=== PATIENT | female | born 1965 | race Caucasian/White ===

== ENCOUNTER → 2016-08-19 | Outpatient (CLI) | payer BC | LOC: LAB 10:22 | DX: Z00.00 Encounter for general adult medical examination without abnormal findings (principal); K90.0 Celiac disease; E50.9 Vitamin A deficiency, unspecified; D50.8 Other iron deficiency anemias; E03.8 Other specified hypothyroidism; E56.1 Deficiency of vitamin K ==

== ENCOUNTER → 2017-05-04 | Outpatient (CLI) | payer BC ==
[2017-05-04 07:55] LABS: EOS % 1.1 % (1.0-5.0); HEMATOCRIT 43.2 % (37.0-47.0); LYMPH# 1.3 (1.50-4.00); MEAN CELL VOLUME 88 fl (78-100); MEAN CORPUSCULAR HEMOGLOBIN 29 pg (27-31); MEAN CORPUSCULAR HGB CONC 32 g/dL (33-37); MEAN PLATELET VOLUME 9.1 fl (7.4-10.4); MONO # 0.4 (0.20-0.80); NEU # 2.1 (1.40-6.50); PLATELET COUNT 394 K/mm3 (130-400); RED BLOOD COUNT 4.91 M/mm3 (4.10-5.30); RED CELL DISTRIBUTION WIDTH 13.4 % (11.5-14.5); WHITE BLOOD COUNT 3.8 K/mm3 (4.8-10.8)
[2017-05-04 08:10] LABS: BUN/CREATININE RATIO 26.8 (6.0-26.0); TOTAL BILIRUBIN 0.9 mg/dL (0.2-1.3); TOTAL PROTEIN 7.3 g/dL (6.3-8.2)
[2017-05-04 09:10] LABS: URINE APPEARANCE CLEAR; URINE BILIRUBIN NEGATIVE (NEGATIVE); URINE BLOOD 50 ery/uL (NEGATIVE); URINE COLOR YELLOW; URINE GLUCOSE NEGATIVE (NEGATIVE); URINE KETONE NEGATIVE (NEGATIVE); URINE LEUKOCYTE ESTERASE NEGATIVE (NEGATIVE); URINE MUCUS PRESENT (NOT PRESENT); URINE NITRATE NEGATIVE (NEGATIVE); URINE PROTEIN(semi-quant) NEGATIVE (NEGATIVE); URINE UROBILINOGEN NORMAL (NORMAL)
[2017-05-04 09:18] LABS: ERYTHROCYTE SEDIMENTATION RATE 3 mm/hr (0-30)
[2017-05-04 22:56] LABS: C-REACTIVE PROTEIN XXX
[2017-05-05 00:46] LABS: T3 TOTAL 74 ng/dL (87-178)
== END ==
LOC: LAB 07:39
PROVIDERS: Internal Medicine
DX: K90.0 Celiac disease (principal); Z00.00 Encounter for general adult medical examination without abnormal findings; E50.9 Vitamin A deficiency, unspecified; E56.1 Deficiency of vitamin K; Z12.11 Encounter for screening for malignant neoplasm of colon; E03.8 Other specified hypothyroidism; D50.8 Other iron deficiency anemias

== ENCOUNTER → 2017-05-22 | Outpatient (CLI) | payer BC | LOC: LAB 14:58 | DX: Z00.00 Encounter for general adult medical examination without abnormal findings (principal); K90.0 Celiac disease; E56.1 Deficiency of vitamin K; Z12.11 Encounter for screening for malignant neoplasm of colon ==

== ENCOUNTER → 2017-05-27 | Outpatient (CLI) | payer BC ==
[2017-05-27 12:23] LABS: PH-URINE 5.5 (5.0 - 8.0); URINE APPEARANCE CLEAR; URINE BILIRUBIN NEGATIVE (NEGATIVE); URINE BLOOD NEGATIVE (NEGATIVE); URINE COLOR YELLOW; URINE GLUCOSE NEGATIVE (NEGATIVE); URINE KETONE NEGATIVE (NEGATIVE); URINE LEUKOCYTE ESTERASE NEGATIVE (NEGATIVE); URINE NITRATE NEGATIVE (NEGATIVE); URINE PROTEIN(semi-quant) NEGATIVE (NEGATIVE); URINE UROBILINOGEN NORMAL (NORMAL)
[2017-05-28 01:00] LABS: T3 TOTAL 697 ng/dL (87-178)
== END ==
LOC: LAB 11:30
PROVIDERS: Internal Medicine
DX: R31.9 Hematuria, unspecified (principal)

== ENCOUNTER → 2017-06-25 | Outpatient (CLI) | payer BC ==
[2017-06-26 01:18] LABS: T3 TOTAL 74 ng/dL (87-178)
== END ==
LOC: LAB 13:47
PROVIDERS: Internal Medicine
DX: E03.8 Other specified hypothyroidism (principal)

== ENCOUNTER → 2018-04-30 | Outpatient (CLI) | payer BC ==
[2018-04-30 13:49] LABS: URINE WBC 0 /hpf (0-3)
[2018-04-30 14:18] LABS: EOS # 0.1 (0.04-0.40); EOS % 1.5 % (1.0-5.0); HEMATOCRIT 41.1 % (37.0-47.0); HEMOGLOBIN 13.2 g/dL (12.5-16.0); LYMPH# 1.4 (1.50-4.00); MEAN CELL VOLUME 88 fl (78-100); MEAN CORPUSCULAR HEMOGLOBIN 28 pg (27-31); MEAN CORPUSCULAR HGB CONC 32 g/dL (33-37); MEAN PLATELET VOLUME 10.7 fl (7.4-10.4); MONO # 0.4 (0.20-0.80); NEU # 2.6 (1.40-6.50); PLATELET COUNT 357 K/mm3 (130-400); RED BLOOD COUNT 4.65 M/mm3 (4.10-5.30); RED CELL DISTRIBUTION WIDTH 12.6 % (11.5-14.5); WHITE BLOOD COUNT 4.5 K/mm3 (4.8-10.8)
[2018-04-30 14:53] LABS: CALCIUM 9.3 mg/dL (8.4-10.2); TOTAL BILIRUBIN 0.8 mg/dL (0.2-1.3); TOTAL PROTEIN 6.8 g/dL (6.3-8.2)
[2018-04-30 15:44] LABS: ERYTHROCYTE SEDIMENTATION RATE 5 mm/hr (0-30)
[2018-04-30 17:12] LABS: URINE APPEARANCE CLEAR; URINE BILIRUBIN NEGATIVE (NEGATIVE); URINE BLOOD NEGATIVE (NEGATIVE); URINE COLOR YELLOW; URINE GLUCOSE NEGATIVE (NEGATIVE); URINE KETONE NEGATIVE (NEGATIVE); URINE LEUKOCYTE ESTERASE NEGATIVE (NEGATIVE); URINE NITRATE NEGATIVE (NEGATIVE); URINE PROTEIN(semi-quant) NEGATIVE (NEGATIVE); URINE UROBILINOGEN NORMAL (NORMAL)
[2018-05-01 01:25] LABS: T3 TOTAL 68 ng/dL (87-178)
[2018-05-01 10:33] LABS: C-REACTIVE PROTEIN XXX
== END ==
LOC: LAB 09:34
PROVIDERS: Internal Medicine
DX: Z12.11 Encounter for screening for malignant neoplasm of colon (principal); Z00.00 Encounter for general adult medical examination without abnormal findings; K90.0 Celiac disease; E03.9 Hypothyroidism, unspecified; D50.9 Iron deficiency anemia, unspecified

== ENCOUNTER → 2018-09-24 | Outpatient (CLI) | payer BC | LOC: LAB 13:22 | DX: Z01.84 Encounter for antibody response examination (principal) ==

== ENCOUNTER → 2019-04-25 | Outpatient (CLI) | payer BC ==
[2019-04-25 18:38] LABS: EOS # 0.1 (0.04-0.40); EOS % 1.2 % (1.0-5.0); HEMOGLOBIN 14.2 g/dL (12.5-16.0); MEAN CELL VOLUME 88 fl (78-100); MEAN CORPUSCULAR HEMOGLOBIN 29 pg (27-31); MEAN CORPUSCULAR HGB CONC 33 g/dL (33-37); MEAN PLATELET VOLUME 9.2 fl (7.4-10.4); MONO # 0.6 (0.20-0.80); NEU # 3.7 (1.40-6.50); PLATELET COUNT 385 K/mm3 (130-400); RED BLOOD COUNT 4.88 M/mm3 (4.10-5.30); RED CELL DISTRIBUTION WIDTH 12.9 % (11.5-14.5); WHITE BLOOD COUNT 6.5 K/mm3 (4.8-10.8)
[2019-04-25 18:44] LABS: PH-URINE 6.5 (5.0 - 8.0); URINE APPEARANCE CLEAR; URINE BILIRUBIN NEGATIVE (NEGATIVE); URINE BLOOD NEGATIVE (NEGATIVE); URINE COLOR YELLOW; URINE GLUCOSE NEGATIVE (NEGATIVE); URINE KETONE NEGATIVE (NEGATIVE); URINE LEUKOCYTE ESTERASE NEGATIVE (NEGATIVE); URINE MUCUS PRESENT (NOT PRESENT); URINE NITRATE NEGATIVE (NEGATIVE); URINE PROTEIN(semi-quant) TRACE mg/dL (NEGATIVE); URINE UROBILINOGEN NORMAL (NORMAL)
[2019-04-25 18:48] LABS: ALBUMIN 4.2 g/dL (3.5-5.0); POTASSIUM 4.2 mmol/L (3.5-5.1); SODIUM 138 mmol/L (136-145)
[2019-04-25 18:49] LABS: CALCIUM 9.4 mg/dL (8.3-10.5)
[2019-04-25 18:50] LABS: TOTAL PROTEIN 7.3 g/dL (6.4-8.3)
[2019-04-25 18:51] LABS: CARBON DIOXIDE 24 mmol/L (22-29); GLUCOSE 97 mg/dL (65-105)
[2019-04-25 18:52] LABS: TOTAL BILIRUBIN 0.4 mg/dL (0.2-1.2)
[2019-04-25 18:56] LABS: AST-SGOT 14 U/L (5-34)
[2019-04-25 18:57] LABS: ALT/SGPT 19 U/L (0-55)
[2019-04-25 19:41] LABS: ERYTHROCYTE SEDIMENTATION RATE 8 mm/hr (0-30)
[2019-04-26 19:33] LABS: T3 TOTAL 87 ng/dL (87-178)
== END ==
LOC: LAB 17:45
PROVIDERS: Internal Medicine
DX: Z00.00 Encounter for general adult medical examination without abnormal findings (principal); Z12.11 Encounter for screening for malignant neoplasm of colon; E03.8 Other specified hypothyroidism; K90.0 Celiac disease; E56.1 Deficiency of vitamin K; D50.8 Other iron deficiency anemias

== ENCOUNTER → 2020-05-16 | Outpatient (CLI) | payer BC ==
[2020-05-16 17:23] LABS: EOS # 0.1 (0.04-0.40); EOS % 1.5 % (1.0-5.0); HEMATOCRIT 41.4 % (37.0-47.0); HEMOGLOBIN 13.6 g/dL (12.5-16.0); LYMPH# 1.9 (1.50-4.00); MEAN CELL VOLUME 88 fl (78-100); MEAN CORPUSCULAR HEMOGLOBIN 29 pg (27-31); MEAN CORPUSCULAR HGB CONC 33 g/dL (33-37); MEAN PLATELET VOLUME 9.1 fl (7.4-10.4); MONO # 0.6 (0.20-0.80); NEU # 2.7 (1.40-6.50); PLATELET COUNT 404 K/mm3 (130-400); WHITE BLOOD COUNT 5.3 K/mm3 (4.8-10.8)
[2020-05-16 17:28] LABS: POTASSIUM 4.1 mmol/L (3.5-5.1)
[2020-05-16 17:29] LABS: ALBUMIN 4.1 g/dL (3.5-5.0)
[2020-05-16 17:30] LABS: CALCIUM 8.9 mg/dL (8.3-10.5)
[2020-05-16 17:31] LABS: TOTAL PROTEIN 7.2 g/dL (6.4-8.3)
[2020-05-16 17:33] LABS: TOTAL BILIRUBIN 0.8 mg/dL (0.2-1.2)
[2020-05-16 17:38] LABS: MAGNESIUM 2.12 mg/dL (1.60-2.60)
[2020-05-16 18:15] LABS: ERYTHROCYTE SEDIMENTATION RATE 4 mm/hr (0-30)
[2020-05-19 12:30] LABS: VITAMIN A 33.2 mcg/dL (())
== END ==
LOC: LAB 17:04
PROVIDERS: Internal Medicine
DX: Z00.00 Encounter for general adult medical examination without abnormal findings (principal); E03.8 Other specified hypothyroidism

== ENCOUNTER → 2021-07-11 | Outpatient (CLI) | payer BC ==
[2021-07-11 18:42] LABS: BASO # 0.02 K/mm3 (0.02-0.10); HEMATOCRIT 43.1 % (37.0-47.0); HEMOGLOBIN 14.1 g/dL (12.5-16.0); LYMPH# 1.36 K/mm3 (1.50-4.00); MEAN CELL VOLUME 88 fl (78-100); MEAN CORPUSCULAR HEMOGLOBIN 29 pg (27-31); MEAN CORPUSCULAR HGB CONC 33 g/dL (33-37); MEAN PLATELET VOLUME 9.1 fl (7.4-10.4); MONO # 0.59 K/mm3 (0.20-0.80); NEU # 2.18 K/mm3 (1.40-6.50); PLATELET COUNT 325 K/mm3 (130-400); RED BLOOD COUNT 4.88 M/mm3 (4.10-5.30); RED CELL DISTRIBUTION WIDTH 12.8 % (11.5-14.5); WHITE BLOOD COUNT 4.2 K/mm3 (4.8-10.8)
[2021-07-11 18:46] LABS: ALBUMIN 4.2 g/dL (3.5-5.0); POTASSIUM 3.6 mmol/L (3.5-5.1)
[2021-07-11 18:47] LABS: CALCIUM 9.9 mg/dL (8.3-10.5)
[2021-07-11 18:49] LABS: TOTAL PROTEIN 7.1 g/dL (6.4-8.3)
[2021-07-11 18:50] LABS: TOTAL BILIRUBIN 1.5 mg/dL (0.2-1.2)
[2021-07-11 18:55] LABS: MAGNESIUM 1.95 mg/dL (1.60-2.60)
[2021-07-11 20:57] LABS: ERYTHROCYTE SEDIMENTATION RATE 2 mm/hr (0-30)
== END ==
LOC: LAB 18:08
PROVIDERS: Internal Medicine
DX: Z00.00 Encounter for general adult medical examination without abnormal findings (principal)

== ENCOUNTER → 2023-07-14 | Outpatient (CLI) | payer BC ==
[2023-07-14 16:29] LABS: BASO # 0.02 K/mm3 (0.02-0.10); EOS # 0.03 K/mm3 (0.04-0.40); EOS % 0.8 % (1.0-5.0); HEMATOCRIT 40.3 % (37.0-47.0); HEMOGLOBIN 13.2 g/dL (12.5-16.0); LYMPH# 1.62 K/mm3 (1.50-4.00); MEAN CELL VOLUME 89 fl (78-100); MEAN CORPUSCULAR HEMOGLOBIN 29 pg (27-31); MEAN CORPUSCULAR HGB CONC 33 g/dL (33-37); MEAN PLATELET VOLUME 9.3 fl (7.4-10.4); PLATELET COUNT 351 K/mm3 (130-400); RED BLOOD COUNT 4.54 M/mm3 (4.10-5.30); WHITE BLOOD COUNT 3.7 K/mm3 (4.8-10.8)
[2023-07-14 16:33] LABS: ALBUMIN 4.1 g/dL (3.5-5.0)
[2023-07-14 16:34] LABS: CALCIUM 9.7 mg/dL (8.3-10.5)
[2023-07-14 16:37] LABS: TOTAL BILIRUBIN 1.1 mg/dL (0.2-1.2)
[2023-07-15 16:23] LABS: T3 FREE 9.5 pg/mL (1.7-3.7)
[2023-07-15 16:35] LABS: HEPATITIS C VIRUS ANTIBODY Negative (Negative)
== END ==
LOC: LAB 16:01
PROVIDERS: Internal Medicine
DX: Z00.00 Encounter for general adult medical examination without abnormal findings (principal); Z11.59 Encounter for screening for other viral diseases; Z12.11 Encounter for screening for malignant neoplasm of colon